=== PATIENT | male | born 1970 | race African-American/Black ===

== ENCOUNTER 2021-10-24 06:42 | Emergency (ER) | payer BC ==
[~2021-10-24] VITALS: Ht 180.3 cm; Wt 95.3 kg
[2021-10-24 08:03] LABS: ABSOLUTE NEUTROPHILS 2.2 thou/uL (1.4-8.2); BASOPHILS 0.5 % (0.0-2.0); EOSINOPHILS 4.5 % (0.0-3.0); HEMOGLOBIN 13.7 gm/dL (14.0-18.0); LYMPHOCYTES 50.7 % (24.0-44.0); MCH 32.2 pg (26.0-34.0); MCHC 33.5 g/dL (28.0-37.0); MCV 96.3 fL (80.0-100.0); MONOCYTES 7.3 % (1.0-8.0); PLATELET COUNT 287 thou/uL (150-400); RBC 4.26 mil/uL (4.50-6.00); RDW 12.5 % (10.5-14.5)
[2021-10-24 08:05] LABS: CALCIUM 9.1 mg/dL (8.5-10.1); CREATININE 1.3 mg/dL (0.7-1.3); POTASSIUM 4.1 mmol/L (3.5-5.1)
[2021-10-24 08:16] LABS: ALBUMIN 3.6 g/dL (3.4-5.0); TOTAL BILIRUBIN 0.4 mg/dL (0.2-1.0); TOTAL PROTEIN 7.5 g/dL (6.4-8.2)
[2021-10-24 09:09] VITALS: BP 142/98
--- NOTE | 2021-10-24 12:34 | EKG ---
[place] [address] [facility] [place] [address] ELECTROCARDIOGRAM REPORT Name: LEELEE CHURCH Room #: DEP Mickie#: [id number] Admission: 10/24/21 Attend Phys: Discharge: 10/24/21 Date of : 68 Report #: [id number] [facility] ED Test Date: 2021-10-24 Test Time: 07:12:04 Pat Name: LEELEE CHURCH Department: Room: Gender: Pig Breeder: : 1970 Requested By: Adwoa Desouza Order Number: [id number] MD: Parvez Riley Measurements Intervals [place] Rate: 82 P: 76 AR: 162 QRS: 37 QRSD: 80 T: -14 QT: 379 QTc: 443 Interpretive Statements Sinus rhythm Borderline T abnormalities, inferior leads J Point elevation, anterior leads Baseline wander in lead(s) V1,V6 No previous ECG available for comparison Electronically Signed On 10-24-2021 12:34:07 CERTIFIED SCRUB TECH by Parvez Riley [email or web address] <ELECTRONICALLY SIGNED> By: Parvez Riley MD, [facility] 10/24/21 1234 1 1 Parvez Riley MD, FACC /EPI
== END 2021-10-24 09:12 | disposition home or self-care (01) ==
LOC: ER 06:42
PROVIDERS: Emergency Medicine
DX: R20.2 Paresthesia of skin (principal); E11.9 Type 2 diabetes mellitus without complications; I10 Essential (primary) hypertension; J45.909 Unspecified asthma, uncomplicated; Z21 Asymptomatic human immunodeficiency virus [HIV] infection status